=== PATIENT | female | born 1930 | race Caucasian/White ===

== ENCOUNTER → 2017-01-29 | Outpatient (CLI) | payer OTHER ==
[2012-09-10 17:33] VITALS: BP 190/76
--- NOTE | 2017-01-30 10:55 | MG ---
Examination: Bilateral screening mammogram. Clinical history: Routine screening. Technique: Digital CC and MLO views of both breasts were obtained. Computer aided detection analysis was performed and used during the interpretation. Comparison: 12/08/2015, 07/20/2014. Findings: The breasts are heterogeneously dense, reducing the sensitivity of mammography. Benign-appearing calc ifications and vascular calcifications are noted in the breasts bilaterally. A stable benign-appearin g density is present in the upper outer aspect of the left breast. No suspicious mass, area of architectural distortion or suspicious cluster of microcalcifications is noted. Impression: 1. No mammographic evidence of malignancy. BI-RADS category 2-benign findings. Recommend routine annual screening mammogram. Diagnostic CAD was utilized and reviewed. * 0 (ZERO) - ASSESSMENT INCOMPLETE; ADDITIONAL IMAGING IS NEEDED. * 0C - ASSESSMENT INCOMPLETE, NEEDS ADDITIONAL IMAGING EVALUATION AND/OR PRIOR MAMMOGRAMS FOR COMPARI SON. * 1/ (ONE) - NEGATIVE. * 2/II (TWO) - BENIGN FINDINGS. * 3/III (THREE) - PROBABLY BENIGN FINDING; SHORT INTERVAL FOLLOW-UP SUGGESTED. * 4/IV (FOUR) - SUSPICIOUS ABNORMALITY; BIOPSY SHOULD BE CONSIDERED. * 5/V - HIGHLY SUSPICIOUS OF MALIGNANCY; BIOPSY SHOULD BE PERFORMED. * 6/IV - KNOWN BIOPSY PROVEN MALIGNANCY-APPROPRIATE ACTION SHOULD BE TAKEN. A NEGATIVE X-RAY REPORT SHOULD NOT DELAY BIOPSY IF A DOMINANT OR CLINICALLY SUSPICIOUS MASS IS PRESENT; 4 TO 8 PERCENT OF CANCERS ARE NOT IDENTIFIED BY X-RAY. A NEGATIVE REPORT MAY REINFORCE THE CLINICAL IMPRESSION. ADENOSIS AND DENSE BREASTS MAY OBSCURE AN UNDERLYING NEOPLASM. Reported By:
== END ==
LOC: RAD 10:29
PROVIDERS: ATTEND Specialist
DX: Z12.31 Encounter for screening mammogram for malignant neoplasm of breast (principal)
CPT/HCPCS: 77067

== ENCOUNTER → 2017-07-18 | Outpatient (CLI) | payer OTHER ==
[2012-09-10 17:33] VITALS: BP 190/76
[~2017-07-18] MED LIST: LEXISCAN IV ONE
== END ==
LOC: RAD 08:19
PROVIDERS: ATTEND Internal Medicine Cardiovascular Disease
DX: R07.9 Chest pain, unspecified (principal)
CPT/HCPCS: 78452; 93017; A4222; A9502; J2785

== ENCOUNTER 2019-12-02 15:25 | Inpatient (IN) ==
[2019-12-02 15:38] VITALS: BMI 23.8
[2019-12-02] MEDS ORDERED: ZOFRAN INJ 4 MG VIAL IVP ONE (16:59)
[2019-12-02] MEDS ORDERED: ZOFRAN INJ 4 MG VIAL ONE (17:03)
[2019-12-02 17:30] LABS: BASOPHILS % (AUTO) 0.3 % (0.2-1.0); EOSINOPHILS % (AUTO) 0.1 % (0.9-2.9); HEMATOCRIT 26.9 % (36.0-47.0); HEMOGLOBIN 9.4 g/dL (12.0-16.0); LYMPHOCYTES # (AUTO) 1.3 X10^3/uL (1.3-2.9); LYMPHOCYTES % (AUTO) 12.5 % (21.0-51.0); MEAN CORPUSCULAR HEMOGLOBIN 35.5 pg (27.0-34.0); MEAN CORPUSCULAR VOLUME 101.5 fL (80.0-100.0); MEAN PLATELET VOLUME 7.1 fL (7.4-11.0); MONOCYTES # (AUTO) 2.6 x10^3/uL (0.3-0.8); MONOCYTES % (AUTO) 24.1 % (0.0-13.0); NEUTROPHILS # (AUTO) 6.7 x10^3/uL (2.2-4.8); PLATELET COUNT 157 X10^3/uL (150.0-450.0); RED BLOOD COUNT 2.65 X10^6/uL (3.5-5.4); RED CELL DISTRIBUTION WIDTH 13.3 % (11.6-16.5); WHITE BLOOD COUNT 10.6 X10^3/uL (3.6-10.0)
[2019-12-02] MEDS ORDERED: NS 500 ML IV 500 ML IV ONE (17:32)
[2019-12-02 17:38] LABS: BLOOD UREA NITROGEN 12 mg/dL (7-18); CALCIUM 8.4 mg/dL (8.5-10.1); CARBON DIOXIDE 27.5 mmol/L (21-32); CHLORIDE 86 mmol/L (98-107); COR NA(FOR HYPERGLY) 119 mmol/L (136-145); CREATININE 0.88 mg/dL (0.55-1.02); eGFR NON BLACK RACES > 60 (>60)
--- NOTE | 2019-12-02 17:39 | DR.SOBA ---
HPI Time Seen Time Seen by Provider: 12/02/19 16:45 Primary Care Physician Primary Care Physician: STANFORD Complaints Chief Complaint Doctors Comments: An 89 y/o female presenting with c/o SOB x 3 days. It hurts to take deep breaths. She has other symptoms relating to weakness. nausea and fever. She had a COVID test done at her PCP's office 2 days ago but result is not back yet. She states that her PCP asked her to be seen in the ED today when she called into that office. Her cough is non-productive. Chief Complaint:: PT C/O SHORTNESS OF BREATH, SHARP PAIN WHEN SHE TAKES A DEEP BREATH, FEVER, WEAKNESS, AND NAUSEA. PT WENT TO SEE PCP SATURDAY AND WAS GIVEN ANTIBIOTIC PRESCRIPTIONS AND WAS TESTED FOR COVID WITH UNKNOWN RESULTS OF NOW. COVID-19 Coronavirus risk:travel/contact w/high risk person: No Has patient experienced Coronavirus symptoms: Yes Coronavirus symptoms experienced: Fever, Coughing and Shortness of Breath Reviewed Nurses Notes Reviewed: Yes Source History Provided: Patient and Family Member Mode of Arrival Mode of Arrival: Ambulatory Timing Onset of Chief Complaint: 11/27/19 Context PE Risk Factors:: None History of:: None Currently on:: Neither Prehospital Care:: None Modifying Factors Worsens:: Nothing Improves:: Nothing PMH PMH Past Medical History: Yes Past Medical History: Hypertension and Hyperthyroidism Past Surgical History: Yes Surgical History: Hysterectomy, Tonsillectomy and Other Family History History of Family Medical Conditions: No Social History Does any household member use tobacco: No Alcohol Use: None Do you use any recreational Drugs:: No Lives With: Family Lives Where: Home Travel Risk Coronavirus risk:travel/contact w/high risk person: No Has patient experienced Coronavirus symptoms: Yes Coronavirus symptoms experienced: Fever, Coughing and Shortness of Breath Infectious screening In the last 2 months have you had wt loss of >10#?: NO Have you had fever, night sweats or hemotysis?: No Have you traveled outside the country in the last 6 months?: No Isolation: Droplet ROS Review of Systems Constitutional: Fever and Weakness Eyes: No Symptoms Reported ENTM: No Symptoms Reported Respiratoy: Non-Productive Cough and Short of Breath Cardiovascular: No Symptoms Reported Gastrointestinal/Abdominal: Nausea; negative See HPI, Abdominal Pain, Constipation, Diarrhea, Vomiting and Food Intolerance Genitourinary: No Symptoms Reported Neurological: No Symptoms Reported Musculoskeletal: No Symptoms Reported Integumentary: No Symptoms Reported Hematologic/Lymphatic: No Symptoms Reported Endocrine: No Symptoms Reported Psychiatric: No Symptoms Reported PE Vital Signs Vitals: Temperature 97.9 F Pulse Rate 118 Respiratory Rate 20 Blood Pressure 109/66 O2 Sat by Pulse Oximetry 94 General Limitations: No Limitations General Appearance: Alert and In No Apparent Distress Head Head Exam: Normal Inspection, Atraumatic and Normocephalic Eyes Eye exam: Normal Appearance and EOMI ENT ENT Exam: Normal Exam, Normal Oropharynx, Normal External Ear Exam and Mucous Membranes Moist Neck Neck Exam: Normal Inspection, Full ROM and Trachea Midline Chest Chest Inspection: Normal Inspection and Symmetric Chest Wall Rise Respiratory Respiratory Exam: Normal Lung Sounds Bilat Cardiovascular Cardiovascular Exam: Regular Rate, Normal Rhythm, Normal Heart Sounds, +S1 and +S2 Abdominal Exam Abdominal Exam: Normal Inspection, Normal Bowel Sounds and Soft Extremities Extremities Exam: Normal Inspection and Full ROM Back Back Exam: Normal Inspection and Full ROM Neurologic Neurological Exam: Alert and Oriented X3 Psychiatric Psychiatric Exam: Normal Affect and Normal Mood Skin Skin Exam: Dry and Normal Color COURSE Reevaluation 1st: Unchanged 2nd: Improved Education/Counseling Education/Counseling: Patient, Family, Education and Counseling Educated On: Treatment, Diagnosis, Prognosis and Needs for Follow Up ROR Labs Reviewed Result Diagrams: 12/02/19 17:09 12/02/19 17:09 Laboratory: WBC 10.6 X10^3/uL (3.6-10.0) H 12/02/19 17:09 RBC 2.65 X10^6/uL (3.5-5.4) L 12/02/19 17:09 Hgb 9.4 g/dL (12.0-16.0) L 12/02/19 17:09 Hct 26.9 % (36.0-47.0) L 12/02/19 17:09 MCV 101.5 fL (80.0-100.0) H 12/02/19 17:09 MCH 35.5 pg (27.0-34.0) H 12/02/19 17:09 MCHC 35.0 g/dL (33.0-35.0) 12/02/19 17:09 RDW 13.3 % (11.6-16.5) 12/02/19 17:09 Plt Count 157 X10^3/uL (150.0-450.0) 12/02/19 17:09 Plt Count Comment Adequate (ADEQUATE) 12/02/19 17:09 MPV 7.1 fL (7.4-11.0) L 12/02/19 17:09 Neut % (Auto) 63.0 % (42.0-75.0) 12/02/19 17:09 Lymph % (Auto) 12.5 % (21.0-51.0) L 12/02/19 17:09 [place] % (Auto) 24.1 % (0.0-13.0) H 12/02/19 17:09 Eos % (Auto) 0.1 % (0.9-2.9) L 12/02/19 17:09 Baso % (Auto) 0.3 % (0.2-1.0) 12/02/19 17:09 Neut # (Auto) 6.7 x10^3/uL (2.2-4.8) H 12/02/19 17:09 Lymph # (Auto) 1.3 X10^3/uL (1.3-2.9) 12/02/19 17:09 [place] # (Auto) 2.6 x10^3/uL (0.3-0.8) H 12/02/19 17:09 Eos # (Auto) 0.0 x10^3/uL (0.0-0.2) 12/02/19 17:09 Baso # (Auto) 0.0 X10^3/uL (0.0-0.1) 12/02/19 17:09 Absolute Nucleated RBC 0.0 /100WBC 12/02/19 17:09 Total Counted 100 12/02/19 17:09 Neutrophils % (Manual) 56 % (39-76) 12/02/19 17:09 Band Neutrophils % 7 % (0-10) 12/02/19 17:09 Lymphocytes % (Manual) 17 % (13-43) 12/02/19 17:09 Monocytes % (Manual) 20 % (4-9) H 12/02/19 17:09 Plt Morphology Comment Normal (NORMAL) 12/02/19 17:09 RBC Morphology Abnormal (NORMAL) A 12/02/19 17:09 Poikilocytosis 1+ A 12/02/19 17:09 Macrocytosis 1+ A 12/02/19 17:09 Sodium 118 mmol/L (136-145) L* 12/02/19 17:09 Corrected Sodium 119 mmol/L (136-145) L 12/02/19 17:09 Potassium 4.7 mmol/L (3.5-5.1) 12/02/19 17:09 Chloride 86 mmol/L (98-107) L 12/02/19 17:09 Carbon Dioxide 27.5 mmol/L (21-32) 12/02/19 17:09 BUN 12 mg/dL (7-18) 12/02/19 17:09 Creatinine 0.88 mg/dL (0.55-1.02) 12/02/19 17:09 Est GFR (MDRD) Af Amer > 60 (>60) 12/02/19 17:09 Est GFR (MDRD) Non-Af > 60 (>60) 12/02/19 17:09 Glucose 134 mg/dL (65-99) H 12/02/19 17:09 Calcium 8.4 mg/dL (8.5-10.1) L 12/02/19 17:09 Corrected Calcium 9.7 mg/dL (8.5-10.1) 12/02/19 17:09 Total Bilirubin 0.60 mg/dL (0.2-1.0) 12/02/19 17:09 AST 36 Units/L (15-37) 12/02/19 17:09 ALT 42 Units/L (12-78) 12/02/19 17:09 Alkaline Phosphatase 112 Units/L (46-116) 12/02/19 17:09 Total Protein 6.9 g/dL (6.4-8.2) 12/02/19 17:09 Albumin 2.4 g/dL (3.4-5.0) L 12/02/19 17:09 Globulin 4.5 g/dL (2.5-4.5) 12/02/19 17:09 Albumin/Globulin Ratio 0.5 Ratio (1.1-2.1) L 12/02/19 17:09 Opioid Opioid Risk Tool Age (Ken box if 16-45): No History of Preadolescent Sexual Abuse: No Total: 0 Total Score Risk Category: Low Risk Copyright: Valdivia LR predicting aberrant behaviors Diagnosis Discharge Problem: Acute hyponatremia, Benign essential HTN, Hyperthyroidism Pneumonia Qualifiers: Pneumonia type: due to unspecified organism Laterality: right Lung location: lower lobe of lung Qualified Code(s): J18.9 - Pneumonia, unspecified organism Anemia Qualifiers: Anemia type: unspecified type Qualified Code(s): D64.9 - Anemia, unspecified ADDITIONAL NOTES Additional Notes Additional Notes: Chest AP portable Indication: Dyspnea Comparison none available FINDINGS Patchy right lower lung opacity noted. There is no pneumothorax. Heart size enlarged. Trace effusions possible. IMPRESSION Right lower lung opacity, concerning for pneumonia, with cardiomegaly and COPD likely. Follow-up to resolution to exclude underlying neoplasia Electronically signed by: PAULINE SHIELDS (Dec 02, 2019 18:19:26)
[2019-12-02 17:43] LABS: ALANINE AMINOTRANSFERASE 42 Units/L (12-78); ALBUMIN 2.4 g/dL (3.4-5.0); ALKALINE PHOSPHATASE 112 Units/L (46-116); ASPARTATE AMINO TRANSFERASE 36 Units/L (15-37); COR CA(FOR HYPOALB) 9.7 mg/dL (8.5-10.1); SODIUM 118 mmol/L (136-145); TOTAL PROTEIN 6.9 g/dL (6.4-8.2)
[2019-12-02] MEDS ORDERED: NS 1000 ML 1,000 ML ONE ×2 (17:56→21:05)
--- NOTE | 2019-12-02 18:21 | RAD ---
Chest AP portableIndication: DyspneaComparison none availableFINDINGSPatchy right lower lung opacity noted. There is no pneumothorax. Heart size enlarged. Trace effusions possible.IMPRESSIONRight lower lung opacity, concerning for pneumonia, with cardiomegaly and COPD likely. Follow-up to resolution to exclude underlying neoplasiaElectronically signed by: PAULINE SHIELDS (Dec 02, 2019 18:19:26)
[2019-12-02 18:40] LABS: BAND NEUTROPHILS % 7 % (0-10); PLATELET MORPHOLOGY COMMENT NORMAL (NORMAL); POIKILOCYTOSIS 1+
[2019-12-02] MEDS ORDERED: LEVAQUIN PREMIX IV 750 MG 750 MG/150 ML BAG IV ONE ×2 (19:02→19:07)
[2019-12-02] MEDS ORDERED: NS 1000 ML 1,000 ML IV PRN (21:06)
[2019-12-02] MEDS ORDERED: RESTORIL CAP 15 MG PO PRN (21:46)
[2019-12-02] MEDS ORDERED: AMBIEN PO PRN (21:48)
[2019-12-02] MEDS ORDERED: ROBITUSSIN DM ONE (22:12)
[2019-12-02] MEDS: ROBITUSSIN DM PO SCH (22:12)
[2019-12-03] MEDS ORDERED: DUONEB 0.5 MG/3 MG (3 mL) NEB PRN (01:15)
[2019-12-03 05:44] LABS: BASOPHILS % (AUTO) 0.3 % (0.2-1.0); HEMATOCRIT 26.7 % (36.0-47.0); HEMOGLOBIN 9.2 g/dL (12.0-16.0); LYMPHOCYTES # (AUTO) 1.2 X10^3/uL (1.3-2.9); LYMPHOCYTES % (AUTO) 12.8 % (21.0-51.0); MEAN CORPUSCULAR HEMOGLOBIN 35.8 pg (27.0-34.0); MEAN CORPUSCULAR HGB CONC 34.5 g/dL (33.0-35.0); MEAN CORPUSCULAR VOLUME 103.8 fL (80.0-100.0); MEAN PLATELET VOLUME 7.2 fL (7.4-11.0); MONOCYTES # (AUTO) 1.8 x10^3/uL (0.3-0.8); MONOCYTES % (AUTO) 19.4 % (0.0-13.0); NEUTROPHILS # (AUTO) 6.1 x10^3/uL (2.2-4.8); NEUTROPHILS % (AUTO) 67.5 % (42.0-75.0); PLATELET COUNT 168 X10^3/uL (150.0-450.0); RED BLOOD COUNT 2.57 X10^6/uL (3.5-5.4); RED CELL DISTRIBUTION WIDTH 13.5 % (11.6-16.5); WHITE BLOOD COUNT 9.1 X10^3/uL (3.6-10.0)
[2019-12-03 05:53] LABS: ALANINE AMINOTRANSFERASE 34 Units/L (12-78); ALBUMIN 2.2 g/dL (3.4-5.0); ALKALINE PHOSPHATASE 98 Units/L (46-116); ASPARTATE AMINO TRANSFERASE 24 Units/L (15-37); BLOOD UREA NITROGEN 8 mg/dL (7-18); CARBON DIOXIDE 26.9 mmol/L (21-32); CHLORIDE 93 mmol/L (98-107); COR CA(FOR HYPOALB) 9.4 mg/dL (8.5-10.1); COR NA(FOR HYPERGLY) 125 mmol/L (136-145); CREATININE 0.73 mg/dL (0.55-1.02); TOTAL PROTEIN 6.6 g/dL (6.4-8.2); eGFR NON BLACK RACES > 60 (>60)
[2019-12-03 05:57] LABS: PLATELET MORPHOLOGY COMMENT NORMAL (NORMAL)
[2019-12-03 05:59] LABS: SODIUM 124 mmol/L (136-145)
[2019-12-03] MEDS ORDERED: ROBITUSSIN DM ONE ×3 (08:28→17:56)
[2019-12-03] MEDS: VSL#3 PO SCH (08:37)
[2019-12-03] MEDS: ROBITUSSIN DM PO SCH ×4 (08:37→22:57)
[2019-12-03] MEDS ORDERED: NS 1000 ML 1,000 ML ONE ×2 (09:03→17:56)
[2019-12-03] MEDS: NS 1000 ML 1,000 ML IV SCH ×2 (09:11→18:00)
[2019-12-03] MEDS ORDERED: TYGACIL 50 MG VIAL 100 MG in NS 100 ML IV 100 ML IV ONE (09:11)
[2019-12-03] MEDS ORDERED: LASIX IVP ONE (10:00)
[2019-12-03] MEDS: LOVENOX INJ 40 MG SYR SC SCH (10:30)
[2019-12-03] MEDS ORDERED: LASIX ONE (10:30)
[2019-12-03] MEDS ORDERED: LOVENOX INJ 40 MG SYR SC ONE (10:32)
[2019-12-03 11:03] LABS: BILIRUBIN,URINE NEGATIVE (NEGATIVE); BLOOD/HEMOGLOBIN,URINE 1+ (NEGATIVE); GLUCOSE, URINE NEGATIVE (NEGATIVE); KETONES,URINE NEGATIVE (NEGATIVE); LEUKOCYTE ESTERASE ,URINE NEGATIVE (NEGATIVE); NITRITES,URINE NEGATIVE (NEGATIVE); PROTEIN,URINE 1+ (NEGATIVE); UROBILINOGEN,URINE NORMAL (NORMAL)
[2019-12-03 11:08] LABS: APPEARANCE,URINE CLEAR (CLEAR); COLOR,URINE YELLOW (YELLOW)
[2019-12-03] MEDS: LASIX PO SCH (11:35)
[2019-12-03] MEDS ORDERED: PLAVIX ONE (11:46)
[2019-12-03] MEDS ORDERED: PROTONIX TAB 40 MG PO ONE (11:47)
[2019-12-03] MEDS: PLAVIX PO SCH (12:01)
[2019-12-03] MEDS: SINGULAIR TAB 10 MG PO SCH (12:01)
[2019-12-03] MEDS: TENORMIN PO SCH (12:02)
[2019-12-03] MEDS: PROTONIX TAB 40 MG PO SCH (12:02)
[2019-12-03] MEDS: SYNTHROID 50 mcg TAB PO SCH (12:02)
[2019-12-03 15:15] LABS: BACTERIA,URINE TRACE /HPF (NEGATIVE); RBC,URINE 0-2 /HPF (0-3); SQUAMOUS EPITHELIAL CELL,UR RARE /HPF (NEGATIVE)
[2019-12-03] MEDS: TYGACIL 50 MG VIAL 50 MG in NS 100 ML IV 100 ML IV SCH ×2 (16:05→22:56)
[2019-12-03] MEDS ORDERED: NORCO 7.5/325 MG TAB PO PRN (20:46)
[2019-12-03] MEDS ORDERED: LEVAQUIN PREMIX IV 750 MG 750 MG/150 ML BAG IV ONE (20:49)
[2019-12-03] MEDS ORDERED: NORCO 7.5/325 MG TAB ONE (20:49)
[2019-12-03] MEDS ORDERED: LEVAQUIN PREMIX IV 750 MG 750 MG/150 ML BAG IV SCH (21:00)
[2019-12-03] MEDS ORDERED: AMBIEN PO SCH (21:00)
[2019-12-04] MEDS: NS 1000 ML 1,000 ML IV SCH ×2 (02:36→03:36)
[2019-12-04 06:20] LABS: BASOPHILS % (AUTO) 0.5 % (0.2-1.0); EOSINOPHILS % (AUTO) 0.8 % (0.9-2.9); HEMATOCRIT 25.6 % (36.0-47.0); HEMOGLOBIN 8.6 g/dL (12.0-16.0); LYMPHOCYTES # (AUTO) 1.4 X10^3/uL (1.3-2.9); LYMPHOCYTES % (AUTO) 23.8 % (21.0-51.0); MEAN CORPUSCULAR HEMOGLOBIN 35.2 pg (27.0-34.0); MEAN CORPUSCULAR HGB CONC 33.7 g/dL (33.0-35.0); MEAN CORPUSCULAR VOLUME 104.3 fL (80.0-100.0); MEAN PLATELET VOLUME 7.3 fL (7.4-11.0); MONOCYTES # (AUTO) 0.9 x10^3/uL (0.3-0.8); NEUTROPHILS # (AUTO) 3.5 x10^3/uL (2.2-4.8); NEUTROPHILS % (AUTO) 59.9 % (42.0-75.0); PLATELET COUNT 156 X10^3/uL (150.0-450.0); RED BLOOD COUNT 2.45 X10^6/uL (3.5-5.4); RED CELL DISTRIBUTION WIDTH 13.7 % (11.6-16.5); WHITE BLOOD COUNT 5.9 X10^3/uL (3.6-10.0)
[2019-12-04 06:21] LABS: ALANINE AMINOTRANSFERASE 30 Units/L (12-78); ALBUMIN 1.8 g/dL (3.4-5.0); ALKALINE PHOSPHATASE 93 Units/L (46-116); ASPARTATE AMINO TRANSFERASE 19 Units/L (15-37); BLOOD UREA NITROGEN 14 mg/dL (7-18); CALCIUM 7.5 mg/dL (8.5-10.1); CARBON DIOXIDE 26.6 mmol/L (21-32); CHLORIDE 98 mmol/L (98-107); COR CA(FOR HYPOALB) 9.3 mg/dL (8.5-10.1); CREATININE 0.69 mg/dL (0.55-1.02); SODIUM 130 mmol/L (136-145); TOTAL PROTEIN 5.8 g/dL (6.4-8.2); eGFR NON BLACK RACES > 60 (>60)
[2019-12-04 07:40] LABS: HYPOCHROMASIA SLIGHT; PLATELET MORPHOLOGY COMMENT NORMAL (NORMAL)
[2019-12-04] MEDS ORDERED: LASIX ONE (08:21)
[2019-12-04] MEDS ORDERED: PLAVIX ONE (08:21)
[2019-12-04] MEDS ORDERED: ROBITUSSIN DM ONE (08:21)
[2019-12-04] MEDS ORDERED: PROTONIX TAB 40 MG PO ONE (08:21)
[2019-12-04 08:48] VITALS: BP 125/64
[2019-12-04] MEDS: TENORMIN PO SCH (08:51)
[2019-12-04] MEDS: VSL#3 PO SCH (08:51)
[2019-12-04] MEDS: TYGACIL 50 MG VIAL 50 MG in NS 100 ML IV 100 ML IV SCH (08:51)
[2019-12-04] MEDS: LASIX PO SCH (08:51)
[2019-12-04] MEDS: SINGULAIR TAB 10 MG PO SCH (08:52)
[2019-12-04] MEDS: ROBITUSSIN DM PO SCH (08:52)
[2019-12-04] MEDS: SYNTHROID 50 mcg TAB PO SCH (08:52)
[2019-12-04] MEDS: PLAVIX PO SCH (08:53)
[2019-12-04] MEDS: PROTONIX TAB 40 MG PO SCH (08:53)
[2019-12-04] MEDS: LOVENOX INJ 40 MG SYR SC SCH (10:14)
[2019-12-04] MEDS ORDERED: LEVAQUIN PREMIX IV 750 MG 750 MG/150 ML BAG IV SCH (21:00)
== END 2019-12-04 13:51 | disposition home health service (06) | DRG 194 ==
LOC: ER 15:34 → OBS 19:08
PROVIDERS: ADMIT Family Medicine; ATTEND Obstetrics & Gynecology Obstetrics
DX: D64.9 Anemia, unspecified; J18.8 Other pneumonia, unspecified organism; R06.02 Shortness of breath; R94.31 Abnormal electrocardiogram [ECG] [EKG]; I10 Essential (primary) hypertension; Z20.828 Contact with and (suspected) exposure to other viral communicable diseases; E87.1 Hypo-osmolality and hyponatremia

== ENCOUNTER 2020-04-09 17:13 | Inpatient (IN) ==
[2020-04-09 17:27] VITALS: BMI 23.6
[2020-04-09 18:23] LABS: BASOPHILS # (AUTO) 0.8 X10^3/uL (0.0-0.1); EOSINOPHILS # (AUTO) 0.1 x10^3/uL (0.0-0.2); EOSINOPHILS % (AUTO) 0.2 % (0.9-2.9); HEMATOCRIT 22.8 % (36.0-47.0); HEMOGLOBIN 7.3 g/dL (12.0-16.0); LYMPHOCYTES # (AUTO) 7.7 X10^3/uL (1.3-2.9); LYMPHOCYTES % (AUTO) 10.2 % (21.0-51.0); MEAN CORPUSCULAR HEMOGLOBIN 32.3 pg (27.0-34.0); MEAN CORPUSCULAR VOLUME 100.8 fL (80.0-100.0); MONOCYTES # (AUTO) 3.7 x10^3/uL (0.3-0.8); MONOCYTES % (AUTO) 4.9 % (0.0-13.0); NEUTROPHILS # (AUTO) 63.2 x10^3/uL (2.2-4.8); NEUTROPHILS % (AUTO) 83.7 % (42.0-75.0); PLATELET COUNT 56 X10^3/uL (150.0-450.0); RED BLOOD COUNT 2.26 X10^6/uL (3.5-5.4); RED CELL DISTRIBUTION WIDTH 13.8 % (11.6-16.5)
[2020-04-09 18:26] LABS: ALANINE AMINOTRANSFERASE 9 Units/L (12-78); ALBUMIN 2.1 g/dL (3.4-5.0); ALKALINE PHOSPHATASE 88 Units/L (46-116); AMYLASE 19 Units/L (25-115); ASPARTATE AMINO TRANSFERASE 20 Units/L (15-37); BLOOD UREA NITROGEN 15 mg/dL (7-18); CALCIUM 8.3 mg/dL (8.5-10.1); CARBON DIOXIDE 26.1 mmol/L (21-32); CHLORIDE 93 mmol/L (98-107); COR CA(FOR HYPOALB) 9.8 mg/dL (8.5-10.1); COR NA(FOR HYPERGLY) 129 mmol/L (136-145); CREATININE 1.08 mg/dL (0.55-1.02); LIPASE 42 Units/L (73-393); SODIUM 128 mmol/L (136-145); TOTAL PROTEIN 6.7 g/dL (6.4-8.2); eGFR NON BLACK RACES 51 (>60)
[2020-04-09 18:27] LABS: WHITE BLOOD COUNT 75.4 X10^3/uL (3.6-10.0)
--- NOTE | 2020-04-09 20:18 | RAD ---
HISTORYWeaknessSTUDYCHEST, 1 [id number]/02/2020FINDINGSHeart size is enlarged without pulmonary vasculature congestion. The lungs are clear of airspace consolidation. No pleural effusion or pneumothorax. Chronic osseous findings are stable.IMPRESSIONNo acute cardiopulmonary disease.Electronically signed by: Felix Verdugo (Apr 09, 2020 20:16:52)
--- NOTE | 2020-04-09 22:16 | DR.NAUSEAF ---
HPI Time Seen Time Seen by Provider: 04/09/20 19:32 Primary Care Physician Primary Care Physician: HIEN HPI Comment HPI Comment: According to pt she ahs not been feeling well for 3-4 days gradual in onset .has been experiencing decreased appetite , nausea and vomiting .Pt was seen by home health nurse. noted to have increase heart rate and low blood p ressure. stopped atenolol and was advised to come to ER for evaluation. Ambulance was called and patient brought to ER Complaints Chief Complaint Doctors Comments: not feeling well Chief Complaint:: PT. C/O NAUSEA/VOMITING, DECREASED APPETITE, WEAKNESS. PT. HAD PNEUMONIA IN 2019 AND HEALTH HAS DECLINED SINCE BEING SICK. NAUSEA/VOMITING BEGAN YESTERDAY, 04/08/20. COVID-19 Coronavirus risk:travel/contact w/high risk person: No Has patient experienced Coronavirus symptoms: No Source History Provided: Patient and EMS Mode of Arrival Mode of Arrival: EMS Timing Onset of Chief Complaint: 04/02/20 PMH PMH Past Medical History: Yes Past Medical History: Hypertension and Hypothyroidism Past Surgical History: Yes Surgical History: Hysterectomy and Other Family History History of Family Medical Conditions: Yes Family Medical History: Diabetes Mellitus, Cancer, ID, Sudden Cardiac and Hypertension Social History Does patient currently use any type of tobacco product: No Have you used tobacco products in the last 12 months: No Type of Tobacco Use: None Does any household member use tobacco: No Alcohol Use: None Do you use any recreational Drugs:: No Lives With: Family Lives Where: Home Travel Risk Coronavirus risk:travel/contact w/high risk person: No Has patient experienced Coronavirus symptoms: No Infectious screening In the last 2 months have you had wt loss of >10#?: NO Have you had fever, night sweats or hemotysis?: No Have you traveled outside the country in the last 6 months?: No Isolation: Droplet ROS Review of Systems Constitutional: No Symptoms Reported Eyes: No Symptoms Reported ENTM: No Symptoms Reported Respiratoy: No Symptoms Reported Cardiovascular: Palpitations Gastrointestinal/Abdominal: Nausea and Vomiting Genitourinary: No Symptoms Reported Neurological: Weakness Musculoskeletal: No Symptoms Reported Integumentary: No Symptoms Reported Hematologic/Lymphatic: No Symptoms Reported Endocrine: Decreased Appetite Psychiatric: No Symptoms Reported PE Vital Signs Vitals: Temperature 99.1 F Pulse Rate 122 Respiratory Rate 30 Blood Pressure [Left Arm] 125/64 Blood Pressure 122/63 O2 Sat by Pulse Oximetry 95 General Limitations: No Limitations Head Head Exam: Normal Inspection, Atraumatic and Normocephalic Eyes Eye exam: PERRL, EOMI and Other (pallor) ENT ENT Exam: Normal Exam and Mucous Membranes Dry Neck Neck Exam: Normal Inspection and Full ROM Chest Chest Inspection: Normal Inspection and Symmetric Chest Wall Rise Respiratory Respiratory Exam: Normal Lung Sounds Bilat Cardiovascular Cardiovascular Exam: Irregular Rhythm, +S1 and +S2 Abdominal Exam Abdominal Exam: Soft and Tenderness (epigastric area on deep palpation) Abdominal Tenderness: Epigastrium Extremities Extremities Exam: Normal Inspection Neurologic Neurological Exam: Alert and Oriented X3 Psychiatric Psychiatric Exam: Normal Affect Skin Skin Exam: Pallor MDM Additional Information Obtained Additional Information Obtained From: Old Records Differential Diagnosis Differential Diagnosis Comment: pallor,weakness,nausea,vomiting ,palpiattions,epigastric soreness ROR Labs Reviewed Laboratory Results Reviewed?: Yes Result Diagrams: 04/09/20 18:07 04/09/20 18:07 Laboratory: WBC 75.4 X10^3/uL (3.6-10.0) H* 04/09/20 18:07 RBC 2.26 X10^6/uL (3.5-5.4) L 04/09/20 18:07 Hgb 7.3 g/dL (12.0-16.0) L 04/09/20 18:07 Hct 22.8 % (36.0-47.0) L 04/09/20 18:07 MCV 100.8 fL (80.0-100.0) H 04/09/20 18:07 MCH 32.3 pg (27.0-34.0) 04/09/20 18:07 MCHC 32.0 g/dL (33.0-35.0) L 04/09/20 18:07 RDW 13.8 % (11.6-16.5) 04/09/20 18:07 Plt Count 56 X10^3/uL (150.0-450.0) L 04/09/20 18:07 Plt Count Comment Cancelled 04/09/20 18:07 Plt Count Comment Cancelled 04/09/20 18:07 MPV 8.0 fL (7.4-11.0) 04/09/20 18:07 Neut % (Auto) 83.7 % (42.0-75.0) H 04/09/20 18:07 Lymph % (Auto) 10.2 % (21.0-51.0) L 04/09/20 18:07 [place] % (Auto) 4.9 % (0.0-13.0) 04/09/20 18:07 Eos % (Auto) 0.2 % (0.9-2.9) L 04/09/20 18:07 Baso % (Auto) 1.0 % (0.2-1.0) 04/09/20 18:07 Neut # (Auto) 63.2 x10^3/uL (2.2-4.8) H 04/09/20 18:07 Lymph # (Auto) 7.7 X10^3/uL (1.3-2.9) H 04/09/20 18:07 [place] # (Auto) 3.7 x10^3/uL (0.3-0.8) H 04/09/20 18:07 Eos # (Auto) 0.1 x10^3/uL (0.0-0.2) 04/09/20 18:07 Baso # (Auto) 0.8 X10^3/uL (0.0-0.1) H 04/09/20 18:07 Absolute Nucleated RBC 0.2 /100WBC 04/09/20 18:07 Total Counted Cancelled 04/09/20 18:07 Total Counted Cancelled 04/09/20 18:07 Neutrophils % (Manual) Cancelled 04/09/20 18:07 Neutrophils % (Manual) Cancelled 04/09/20 18:07 Band Neutrophils % Cancelled 04/09/20 18:07 Band Neutrophils % Cancelled 04/09/20 18:07 Lymphocytes % (Manual) Cancelled 04/09/20 18:07 Lymphocytes % (Manual) Cancelled 04/09/20 18:07 Monocytes % (Manual) Cancelled 04/09/20 18:07 Monocytes % (Manual) Cancelled 04/09/20 18:07 Eosinophils % (Manual) Cancelled 04/09/20 18:07 Eosinophils % (Manual) Cancelled 04/09/20 18:07 Basophils % (Manual) Cancelled 04/09/20 18:07 Basophils % (Manual) Cancelled 04/09/20 18:07 Metamyelocytes % Cancelled 04/09/20 18:07 Metamyelocytes % Cancelled 04/09/20 18:07 Myelocytes % Cancelled 04/09/20 18:07 Myelocytes % Cancelled 04/09/20 18:07 Promyelocytes % Cancelled 04/09/20 18:07 Promyelocytes % Cancelled 04/09/20 18:07 Nucleated RBCs Cancelled 04/09/20 18:07 Nucleated RBCs Cancelled 04/09/20 18:07 Atypical Lymphocytes Cancelled 04/09/20 18:07 Atypical Lymphocytes Cancelled 04/09/20 18:07 Blast Cells Cancelled 04/09/20 18:07 Blast Cells Cancelled 04/09/20 18:07 Smudge Cells Cancelled 04/09/20 18:07 Smudge Cells Cancelled 04/09/20 18:07 Toxic Granulation Cancelled 04/09/20 18:07 Toxic Granulation Cancelled 04/09/20 18:07 Dohle Bodies Cancelled 04/09/20 18:07 Dohle Bodies Cancelled 04/09/20 18:07 Santana Rods Cancelled 04/09/20 18:07 Santana Rods Cancelled 04/09/20 18:07 Plt Clumps, EDTA Cancelled 04/09/20 18:07 Plt Clumps, EDTA Cancelled 04/09/20 18:07 Giant Platelets Cancelled 04/09/20 18:07 Giant Platelets Cancelled 04/09/20 18:07 Plt Morphology Comment Cancelled 04/09/20 18:07 Plt Morphology Comment Cancelled 04/09/20 18:07 RBC Morphology Cancelled 04/09/20 18:07 RBC Morphology Cancelled 04/09/20 18:07 Dimorphic RBCs Cancelled 04/09/20 18:07 Dimorphic RBCs Cancelled 04/09/20 18:07 Polychromasia Cancelled 04/09/20 18:07 Polychromasia Cancelled 04/09/20 18:07 Hypochromasia Cancelled 04/09/20 18:07 Hypochromasia Cancelled 04/09/20 18:07 Poikilocytosis Cancelled 04/09/20 18:07 Poikilocytosis Cancelled 04/09/20 18:07 Basophilic Stippling Cancelled 04/09/20 18:07 Basophilic Stippling Cancelled 04/09/20 18:07 Anisocytosis Cancelled 04/09/20 18:07 Anisocytosis Cancelled 04/09/20 18:07 Microcytosis Cancelled 04/09/20 18:07 Microcytosis Cancelled 04/09/20 18:07 Macrocytosis Cancelled 04/09/20 18:07 Macrocytosis Cancelled 04/09/20 18:07 Spherocytes Cancelled 04/09/20 18:07 Spherocytes Cancelled 04/09/20 18:07 Pappenheimer Bodies Cancelled 04/09/20 18:07 Pappenheimer Bodies Cancelled 04/09/20 18:07 Sickle Cells Cancelled 04/09/20 18:07 Sickle Cells Cancelled 04/09/20 18:07 Target Cells Cancelled 04/09/20 18:07 Target Cells Cancelled 04/09/20 18:07 Tear Drop Cells Cancelled 04/09/20 18:07 Tear Drop Cells Cancelled 04/09/20 18:07 Ovalocytes Cancelled 04/09/20 18:07 Ovalocytes Cancelled 04/09/20 18:07 Stomatocytes Cancelled 04/09/20 18:07 Stomatocytes Cancelled 04/09/20 18:07 Helmet Cells Cancelled 04/09/20 18:07 Helmet Cells Cancelled 04/09/20 18:07 [place] Bodies Cancelled 04/09/20 18:07 [place] Bodies Cancelled 04/09/20 18:07 [place] Rings Cancelled 04/09/20 18:07 [place] Rings Cancelled 04/09/20 18:07 [place] Cells Cancelled 04/09/20 18:07 [place] Cells Cancelled 04/09/20 18:07 Crenated Cell Cancelled 04/09/20 18:07 Crenated Cell Cancelled 04/09/20 18:07 Acanthocytes (Spur) Cancelled 04/09/20 18:07 Acanthocytes (Spur) Cancelled 04/09/20 18:07 Rouleaux Cancelled 04/09/20 18:07 Rouleaux Cancelled 04/09/20 18:07 Schistocytes Cancelled 04/09/20 18:07 Schistocytes Cancelled 04/09/20 18:07 Sodium 128 mmol/L (136-145) L 04/09/20 18:07 Corrected Sodium 129 mmol/L (136-145) L 04/09/20 18:07 Potassium 3.5 mmol/L (3.5-5.1) 04/09/20 18:07 Chloride 93 mmol/L (98-107) L 04/09/20 18:07 Carbon Dioxide 26.1 mmol/L (21-32) 04/09/20 18:07 BUN 15 mg/dL (7-18) 04/09/20 18:07 Creatinine 1.08 mg/dL (0.55-1.02) H 04/09/20 18:07 Est GFR (MDRD) Af Amer > 60 (>60) 04/09/20 18:07 Est GFR (MDRD) Non-Af 51 (>60) L 04/09/20 18:07 Glucose 142 mg/dL (65-99) H 04/09/20 18:07 Calcium 8.3 mg/dL (8.5-10.1) L 04/09/20 18:07 Corrected Calcium 9.8 mg/dL (8.5-10.1) 04/09/20 18:07 Total Bilirubin 0.50 mg/dL (0.2-1.0) 04/09/20 18:07 AST 20 Units/L (15-37) 04/09/20 18:07 ALT 9 Units/L (12-78) L 04/09/20 18:07 Alkaline Phosphatase 88 Units/L (46-116) 04/09/20 18:07 Total Protein 6.7 g/dL (6.4-8.2) 04/09/20 18:07 Albumin 2.1 g/dL (3.4-5.0) L 04/09/20 18:07 Globulin 4.6 g/dL (2.5-4.5) H 04/09/20 18:07 Albumin/Globulin Ratio 0.5 Ratio (1.1-2.1) L 04/09/20 18:07 Amylase 19 Units/L (25-115) L 04/09/20 18:07 Lipase 42 Units/L (73-393) L 04/09/20 18:07 XRAY X-ray Results: normal chest xray Opioid Opioid Risk Tool Age (Ken box if 16-45): No History of Preadolescent Sexual Abuse: No Total: 0 Total Score Risk Category: Low Risk Copyright: Valdivia LR predicting aberrant behaviors Diagnosis Discharge Problem: Chronic hyponatremia, Anemia, Leucocytosis, Atrial fibrillation, Epigastric abdominal tenderness, Hypothyroidism
[2020-04-09] MEDS ORDERED: NS 1000 ML 1,000 ML ONE (22:35)
[2020-04-09] MEDS ORDERED: TYLENOL 325 MG TAB PO PRN (22:53)
[2020-04-09] MEDS ORDERED: NS 100 ML IV 100 ML IV SCH (23:00)
[2020-04-09] MEDS ORDERED: PROTONIX TAB 40 MG PO SCH (23:00)
[2020-04-09] MEDS ORDERED: TYLENOL 325 MG TAB PO ONE (23:46)
[2020-04-10] MEDS: PROTONIX INJ 40 MG VIAL IVP SCH ×2 (00:59→09:40)
[2020-04-10] MEDS: NS 1000 ML 1,000 ML IV SCH ×4 (01:25→15:00)
[2020-04-10 07:34] LABS: ALANINE AMINOTRANSFERASE 7 Units/L (12-78); ALBUMIN 2.2 g/dL (3.4-5.0); ALKALINE PHOSPHATASE 87 Units/L (46-116); ASPARTATE AMINO TRANSFERASE 20 Units/L (15-37); BLOOD UREA NITROGEN 16 mg/dL (7-18); CALCIUM 8.5 mg/dL (8.5-10.1); CARBON DIOXIDE 25.7 mmol/L (21-32); CHLORIDE 96 mmol/L (98-107); COR CA(FOR HYPOALB) 9.9 mg/dL (8.5-10.1); COR NA(FOR HYPERGLY) 133 mmol/L (136-145); CREATININE 0.96 mg/dL (0.55-1.02); SODIUM 133 mmol/L (136-145); eGFR NON BLACK RACES 58 (>60)
[2020-04-10 07:41] LABS: BASOPHILS # (AUTO) 0.6 X10^3/uL (0.0-0.1); BASOPHILS % (AUTO) 0.8 % (0.2-1.0); EOSINOPHILS # (AUTO) 0.4 x10^3/uL (0.0-0.2); EOSINOPHILS % (AUTO) 0.4 % (0.9-2.9); HEMATOCRIT 22.5 % (36.0-47.0); HEMOGLOBIN 7.5 g/dL (12.0-16.0); LYMPHOCYTES # (AUTO) 9.2 X10^3/uL (1.3-2.9); LYMPHOCYTES % (AUTO) 11.6 % (21.0-51.0); MEAN CORPUSCULAR HEMOGLOBIN 33.4 pg (27.0-34.0); MEAN CORPUSCULAR HGB CONC 33.1 g/dL (33.0-35.0); MEAN CORPUSCULAR VOLUME 100.9 fL (80.0-100.0); MEAN PLATELET VOLUME 7.8 fL (7.4-11.0); MONOCYTES # (AUTO) 47.2 x10^3/uL (0.3-0.8); MONOCYTES % (AUTO) 59.6 % (0.0-13.0); NEUTROPHILS # (AUTO) 21.9 x10^3/uL (2.2-4.8); NEUTROPHILS % (AUTO) 27.6 % (42.0-75.0); PLATELET COUNT 60 X10^3/uL (150.0-450.0); RED BLOOD COUNT 2.23 X10^6/uL (3.5-5.4)
[2020-04-10 08:04] LABS: WHITE BLOOD COUNT 79.3 X10^3/uL (3.6-10.0)
[2020-04-10 08:06] LABS: BAND NEUTROPHILS % 2 % (0-10); METAMYELOCYTES % 7; MYELOCYTES % 6
[2020-04-10 08:07] LABS: PLATELET MORPHOLOGY COMMENT NORMAL (NORMAL)
[2020-04-10] MEDS: SYNTHROID 50 mcg TAB PO SCH (09:40)
[2020-04-10] MEDS: ZOFRAN INJ 4 MG VIAL IVP PRN ×2 (09:40→18:01)
[2020-04-10] MEDS: COREG TAB 6.25 MG PO SCH ×3 (13:53→22:24)
[2020-04-10] MEDS ORDERED: NS 500 ML IV 500 ML IV ONE ×2 (18:41→18:42)
[2020-04-11] MEDS: NS 1000 ML 1,000 ML IV SCH ×4 (02:58→15:08)
[2020-04-11 07:33] LABS: BASOPHILS # (AUTO) 0.7 X10^3/uL (0.0-0.1)
[2020-04-11 07:40] LABS: BASOPHILS % (AUTO) 1.1 % (0.2-1.0); EOSINOPHILS # (AUTO) 0.3 x10^3/uL (0.0-0.2); EOSINOPHILS % (AUTO) 0.4 % (0.9-2.9); LYMPHOCYTES # (AUTO) 6.3 X10^3/uL (1.3-2.9); MONOCYTES # (AUTO) 45.6 x10^3/uL (0.3-0.8); MONOCYTES % (AUTO) 70.2 % (0.0-13.0)
[2020-04-11 08:14] LABS: RED BLOOD COUNT 3.45 X10^6/uL (3.5-5.4); WHITE BLOOD COUNT 64.8 X10^3/uL (3.6-10.0)
[2020-04-11 08:15] LABS: HEMATOCRIT 33.3 % (36.0-47.0); LYMPHOCYTES % (AUTO) 9.7 % (21.0-51.0); MEAN CORPUSCULAR HEMOGLOBIN 31.9 pg (27.0-34.0); MEAN CORPUSCULAR HGB CONC 33.1 g/dL (33.0-35.0); MEAN CORPUSCULAR VOLUME 96.5 fL (80.0-100.0); NEUTROPHILS % (AUTO) 18.6 % (42.0-75.0); PLATELET COUNT 40 X10^3/uL (150.0-450.0); RED CELL DISTRIBUTION WIDTH 15.5 % (11.6-16.5)
[2020-04-11] MEDS: SYNTHROID 50 mcg TAB PO SCH (08:33)
[2020-04-11] MEDS: COREG TAB 6.25 MG PO SCH ×2 (08:33→21:30)
[2020-04-11] MEDS: PROTONIX INJ 40 MG VIAL IVP SCH (08:33)
[2020-04-11] MEDS: ZOFRAN INJ 4 MG VIAL IVP PRN ×2 (08:38→21:29)
[2020-04-11] MEDS ORDERED: DECADRON INJ IVP ONE (09:14)
[2020-04-11 09:17] LABS: BAND NEUTROPHILS % 6 % (0-10); METAMYELOCYTES % 32
[2020-04-11 09:18] LABS: PROMYELOCYTES % 18
[2020-04-11 09:19] LABS: PLATELET MORPHOLOGY COMMENT NORMAL (NORMAL)
[2020-04-11 09:30] LABS: HEMATOCRIT 34.3 % (36.0-47.0); HEMOGLOBIN 11.2 g/dL (12.0-16.0)
[2020-04-11 11:07] LABS: BILIRUBIN,URINE NEGATIVE (NEGATIVE); BLOOD/HEMOGLOBIN,URINE 4+ (NEGATIVE); GLUCOSE, URINE NEGATIVE (NEGATIVE); KETONES,URINE NEGATIVE (NEGATIVE); LEUKOCYTE ESTERASE ,URINE NEGATIVE (NEGATIVE); NITRITES,URINE NEGATIVE (NEGATIVE); PROTEIN,URINE 2+ (NEGATIVE); UROBILINOGEN,URINE NORMAL (NORMAL)
[2020-04-11 11:16] LABS: APPEARANCE,URINE SLIGHTLY HAZY (CLEAR); COLOR,URINE YELLOW (YELLOW)
[2020-04-11 11:17] LABS: AMORPHOUS SEDIMENT,UR 1+ /HPF (NEGATIVE); BACTERIA,URINE TRACE /HPF (NEGATIVE); RBC,URINE 20-30 /HPF (0-3); SQUAMOUS EPITHELIAL CELL,UR RARE /HPF (NEGATIVE)
--- NOTE | 2020-04-11 11:29 | RAD ---
HISTORYHYPOXIA, R/O FLUID OVERLOADSTUDYCHEST x-ray, 1 VIEWCOMPARISONX-ray 04/09/2020FINDINGSHeart is likely normal in size. Thoracic aorta appears prominent and there is tortuosity of the descending thoracic aorta, unchanged. Possible mass or hiatus hernia is seen projected overlying the right side of the heart. This is more prominent than on prior studies. Correlation with CT chest is recommended.Mild linear density in the right middle lobe is probably atelectasis. Few other vague densities in the lungs could be due to atypical pneumonia or atelectasis, a changed appearance. No pneumothorax or pleural effusion is seen.IMPRESSIONIncreasing soft tissue prominence is seen overlying the right-side of the heart which could be due to a large hiatus hernia mass lesion is not excluded. Further evaluation with chest CT is recommended.Few vague densities are suspected in the lungs which could be atelectasis but atypical pneumonia is not excluded.No evidence of CHF but there is chronic prominence of the thoracic aorta.Electronically signed by: Marcellus Bullock (Apr 11, 2020 11:28:02)
[2020-04-11] MEDS ORDERED: RESTORIL CAP 15 MG PO ONE (23:42)
[2020-04-12] MEDS: NS 1000 ML 1,000 ML IV SCH ×3 (00:11→16:40)
[2020-04-12 07:06] LABS: ALANINE AMINOTRANSFERASE 7 Units/L (12-78); ALBUMIN 1.8 g/dL (3.4-5.0); ALKALINE PHOSPHATASE 78 Units/L (46-116); ASPARTATE AMINO TRANSFERASE 15 Units/L (15-37); BLOOD UREA NITROGEN 20 mg/dL (7-18); CALCIUM 7.7 mg/dL (8.5-10.1); CARBON DIOXIDE 21.5 mmol/L (21-32); CHLORIDE 102 mmol/L (98-107); COR CA(FOR HYPOALB) 9.5 mg/dL (8.5-10.1); COR NA(FOR HYPERGLY) 136 mmol/L (136-145); CREATININE 1.01 mg/dL (0.55-1.02); SODIUM 135 mmol/L (136-145); TOTAL PROTEIN 6.2 g/dL (6.4-8.2); eGFR NON BLACK RACES 55 (>60)
[2020-04-12 07:23] LABS: LYMPHOCYTES % (AUTO) 9.7 % (21.0-51.0); PLATELET COUNT 30 X10^3/uL (150.0-450.0)
[2020-04-12 07:28] LABS: BASOPHILS # (AUTO) 0.3 X10^3/uL (0.0-0.1); BASOPHILS % (AUTO) 0.6 % (0.2-1.0); EOSINOPHILS # (AUTO) 0.4 x10^3/uL (0.0-0.2); EOSINOPHILS % (AUTO) 0.7 % (0.9-2.9); HEMATOCRIT 31.9 % (36.0-47.0); HEMOGLOBIN 10.8 g/dL (12.0-16.0); LYMPHOCYTES # (AUTO) 5.6 X10^3/uL (1.3-2.9); MEAN CORPUSCULAR HEMOGLOBIN 32.8 pg (27.0-34.0); MEAN CORPUSCULAR HGB CONC 33.9 g/dL (33.0-35.0); MEAN CORPUSCULAR VOLUME 96.8 fL (80.0-100.0); MEAN PLATELET VOLUME 8.1 fL (7.4-11.0); MONOCYTES # (AUTO) 0.7 x10^3/uL (0.3-0.8); MONOCYTES % (AUTO) 1.2 % (0.0-13.0); NEUTROPHILS # (AUTO) 50.5 x10^3/uL (2.2-4.8); NEUTROPHILS % (AUTO) 87.8 % (42.0-75.0); RED BLOOD COUNT 3.29 X10^6/uL (3.5-5.4); RED CELL DISTRIBUTION WIDTH 16.5 % (11.6-16.5)
[2020-04-12 07:33] LABS: WHITE BLOOD COUNT 57.5 X10^3/uL (3.6-10.0)
[2020-04-12] MEDS ORDERED: K-DUR TAB 20 MEQ PO SCH (09:00)
[2020-04-12] MEDS: COREG TAB 6.25 MG PO SCH (10:31)
[2020-04-12] MEDS: PROTONIX INJ 40 MG VIAL IVP SCH (10:32)
[2020-04-12] MEDS: SYNTHROID 50 mcg TAB PO SCH (10:32)
[2020-04-12] MEDS ORDERED: NYSTATIN SUSP PO ONE (15:40)
[2020-04-12] MEDS ORDERED: DIFLUCAN PO ONE (15:41)
[2020-04-12 16:42] VITALS: BP 127/90
[2020-04-12] MEDS: ZOFRAN INJ 4 MG VIAL IVP PRN (16:59)
== END 2020-04-12 17:35 | disposition short-term general hospital (02) | DRG 842 ==
LOC: ER 17:13 → MED/SURG 04-10 00:25
PROVIDERS: ADMIT Family Medicine; ATTEND Obstetrics & Gynecology Obstetrics
DX: I95.9 Hypotension, unspecified; D63.8 Anemia in other chronic diseases classified elsewhere; R53.1 Weakness; I10 Essential (primary) hypertension; Z11.52 Encounter for screening for COVID-19; C92.90 Myeloid leukemia, unspecified, not having achieved remission